=== PATIENT | female | born 1950 | race Two or more races ===

== ENCOUNTER → 2017-03-21 | Outpatient (REF) | payer MEDICARE, OTHER ==
[2017-03-21 15:20] LABS: BASO % 0.5 % (0.0-1.0); EOS # 0.3 10^3/uL (0.0-0.50); EOS % 4.1 % (0.0-3.0); HEMATOCRIT 40.5 % (36.0-47.0); HEMOGLOBIN 13.1 g/dl (12.0-16.0); IMMATURE GRANULOCYTE % 0.2 % (0-0); LYMPH % 30.7 % (24.0-44.0); MEAN CORPUSCULAR HEMOGLOBIN 29.8 pg (27.0-33.0); MEAN CORPUSCULAR HGB CONC 32.3 g/dl (32.0-36.5); MEAN CORPUSCULAR VOLUME 92.3 fl (80.0-96.0); MONO # 0.6 10^3/uL (0.0-0.8); MONO % 8.6 % (0.0-5.0); NEUTROPHILS # 3.7 10^3/uL (1.8-7.7); NEUTROPHILS % 55.9 % (36.0-66.0); PLATELET COUNT, AUTOMATED 258 10^3/uL (150-450); RED BLOOD COUNT 4.39 10^6/uL (4.00-5.40); RED CELL DISTRIBUTION WIDTH 13.2 % (11.5-14.5); WHITE BLOOD COUNT 6.7 10^3/uL (4.0-10.0)
[2017-03-21 15:51] LABS: ALBUMIN 3.9 GM/DL (3.2-5.2); ALBUMIN/GLOBULIN RATIO 1.03 (1.00-1.93); ALKALINE PHOSPHATASE 68 U/L (45-117); ALT/SGPT 18 U/L (12-78); ANION GAP 9 MEQ/L (8-16); AST/SGOT 18 U/L (7-37); BILIRUBIN,TOTAL 0.4 MG/DL (0.2-1.0); BLOOD UREA NITROGEN 18 MG/DL (7-18); CALCIUM LEVEL 8.9 MG/DL (8.8-10.2); CARBON DIOXIDE LEVEL 30 MEQ/L (21-32); CHLORIDE LEVEL 105 MEQ/L (98-107); CHOLESTEROL LEVEL 165 MG/DL (<200); CHOLESTEROL RISK RATIO 3.113 (<5); CREATININE FOR GFR 0.82 MG/DL (0.55-1.02); FREE T4 1.11 NG/DL (0.76-1.46); GLOMERULAR FILTRATION RATE > 60.0 (>45); GLUCOSE, FASTING 92 MG/DL (80-110); HDL CHOLESTEROL 53 MG/DL (>40); LDL CHOLESTEROL 97.2 MG/DL (<100); NON-HDL-C 112 MG/DL; SODIUM LEVEL 144 MEQ/L (136-145); TOTAL PROTEIN 7.7 GM/DL (6.4-8.2); TRIGLYCERIDES LEVEL 74 MG/DL (<150)
== END ==
LOC: M LABDRWAD 15:08
DX: R07.89 Other chest pain (principal); I10 Essential (primary) hypertension; E66.01 Morbid (severe) obesity due to excess calories; F32.0 Major depressive disorder, single episode, mild
CPT/HCPCS: 84443

== ENCOUNTER 2022-06-06 10:04 | Emergency (ER) | payer MEDICARE, OTHER ==
[~2022-06-06] VITALS: Ht 147.3 cm; Wt 82.2 kg
[2022-06-06 11:40] LABS: VENOUS BASE EXCESS 1.6 (-2.0-2.0); VENOUS HCO3 28.5 MEQ/L (23.0-27.0); VENOUS O2 SATURATION 56.4 % (60.0-80.0); VENOUS PARTIAL PRESSURE CO2 53.6 mmHg (38.0-50.0); VENOUS PARTIAL PRESSURE O2 31.1 mmHg (30.0-50.0); VENOUS PH 7.343 UNITS (7.330-7.430); VENOUS STANDARD HCO3 24.9 MEQ/L; VENOUS TOTAL CO2 30.1 MEQ/L (24.0-28.0)
[2022-06-06 11:44] LABS: HEMATOCRIT 40.7 % (36.0-47.0); HEMOGLOBIN 13.3 g/dl (12.0-15.5); MEAN CORPUSCULAR HEMOGLOBIN 29.7 pg (27.0-33.0); MEAN CORPUSCULAR HGB CONC 32.7 g/dl (32.0-36.5); MEAN CORPUSCULAR VOLUME 90.8 fl (80.0-96.0); PLATELET COUNT, AUTOMATED 143 10^3/uL (150-450); RED BLOOD COUNT 4.48 10^6/uL (4.00-5.40); WHITE BLOOD COUNT 4.8 10^3/uL (4.0-10.0)
[2022-06-06] MEDS ORDERED: CHLORTHALIDONE 25 MG TAB PO ONE (11:50)
[2022-06-06 12:06] LABS: OSMOLALITY SERUM 294 MOSM/KG (280-301)
[2022-06-06 12:12] LABS: ALBUMIN 4.1 G/DL (3.2-5.2); ALKALINE PHOSPHATASE 69 U/L (46-116); ALT/SGPT 13 U/L (7.0-40); AST/SGOT 25 U/L (<34); BILIRUBIN,DIRECT 0.3 MG/DL (<0.4); BLOOD UREA NITROGEN 18 MG/DL (9-23); CALCIUM LEVEL 8.6 MG/DL (8.3-10.6); CARBON DIOXIDE LEVEL 29 MMOL/L (20-31); CHLORIDE LEVEL 100 MMOL/L (98-107); CREATININE FOR GFR 0.94 MG/DL (0.55-1.30); GLOMERULAR FILTRATION RATE > 60.0 (>39); GLUCOSE, FASTING 92 MG/DL (74-106); POTASSIUM SERUM 3.6 MMOL/L (3.5-5.1); SODIUM LEVEL 137 MMOL/L (136-145); THYROID STIMULATING HORMONE 1.649 uIU/ML (0.55-4.78); TOTAL PROTEIN 7.2 G/DL (5.7-8.2)
[2022-06-06 12:19] LABS: ATYPICAL LYMPH 4 % (0-5); LYMPHOCYTES 8 % (16-44); MONOCYTES 13 % (0-5); NEUTROPHILS 75 % (28-66); PLATELET ESTIMATE NORMAL (NORMAL)
[2022-06-06] MEDS ORDERED: LABETALOL 100MG/20ML VIAL IV STA ×2 (13:38→14:26)
[2022-06-06 14:26] VITALS: BP 178/82
[2022-06-06 14:36] VITALS: BP 178/98
[2022-06-06] MEDS ORDERED: CHLO125TA PO (14:44)
[2022-06-06 15:47] LABS: FOLATE 19.5 NG/ML (>5.4); VITAMIN B12 LEVEL 390 PG/ML (211-911)
== END 2022-06-06 15:20 | disposition home or self-care (01) ==
LOC: M ED 10:04
DX: B02.9 Zoster without complications (principal); I10 Essential (primary) hypertension

== ENCOUNTER 2022-08-28 19:55 | Emergency (ER) | payer MEDICARE, OTHER ==
[~2022-08-28] VITALS: Ht 162.6 cm; Wt 85.0 kg
[~2022-08-28 19:55] MED LIST: CHLO125TA PO
[2022-08-28 20:31] VITALS: TEMP 97
[2022-08-28] MEDS ORDERED: ACETAMINOPHEN 1000MG 100ML IV BAG IV ONE (21:15)
[2022-08-28 21:36] LABS: APPEARANCE, URINE CLEAR (CLEAR); BACTERIA, URINE AUTO NEGATIVE (NEGATIVE); BILIRUBIN, URINE AUTO NEGATIVE (NEGATIVE); BLOOD, URINE BLOOD NEGATIVE (NEGATIVE); COLOR, URINE YELLOW (YELLOW); GLUCOSE, URINE (UA) AUTO NEGATIVE (NEGATIVE); KETONE, URINE AUTO NEGATIVE (NEGATIVE); LEUKOCYTE ESTERASE, URINE AUTO NEGATIVE (NEGATIVE); MUCUS, URINE SMALL (NEGATIVE); NITRITE, URINE AUTO NEGATIVE (NEGATIVE); PROTEIN, URINE AUTO NEGATIVE (NEGATIVE); RBC, URINE AUTO 2 /HPF (0-3); SPECIFIC GRAVITY URINE AUTO 1.011 (1.002-1.035); SQUAMOUS EPITHELIAL CELL UR AU 0 /HPF (0-6); UROBILINOGEN, URINE AUTO 0.2 mg/dL (0.0-2.0); WBC, URINE AUTO 0 /HPF (0-3)
[2022-08-28 22:08] LABS: BASO # 0.1 10^3/uL (0.0-0.2); BASO % 0.6 % (0.0-1.0); EOS # 0.3 10^3/uL (0.0-0.5); EOS % 2.7 % (0.0-3.0); HEMATOCRIT 37.8 % (36.0-47.0); HEMOGLOBIN 12.3 g/dl (12.0-15.5); LYMPH # 2.5 10^3/uL (1.5-5.0); LYMPH % 25.8 % (24.0-44.0); MEAN CORPUSCULAR HEMOGLOBIN 30.4 pg (27.0-33.0); MEAN CORPUSCULAR HGB CONC 32.5 g/dl (32.0-36.5); MEAN CORPUSCULAR VOLUME 93.3 fl (80.0-96.0); MONO # 0.7 10^3/uL (0.0-0.8); MONO % 7.1 % (2.0-8.0); NEUTROPHILS # 6.2 10^3/uL (1.5-8.5); NEUTROPHILS % 63.6 % (36.0-66.0); PLATELET COUNT, AUTOMATED 220 10^3/uL (150-450); RED BLOOD COUNT 4.05 10^6/uL (4.00-5.40); WHITE BLOOD COUNT 9.8 10^3/uL (4.0-10.0)
[2022-08-28 22:23] LABS: RSV AMPLIFICATION NEGATIVE (NEGATIVE)
[2022-08-28] MEDS ORDERED: hydrALAZINE 20MG/ML 1ML VIAL IV STA (22:29)
[2022-08-28 22:47] VITALS: BP 222/98
[2022-08-28 23:17] LABS: LIPASE 35 U/L (12-53)
[2022-08-28 23:20] LABS: ALBUMIN 3.7 G/DL (3.2-5.2); ALKALINE PHOSPHATASE 61 U/L (46-116); ALT/SGPT 11 U/L (7.0-40); AST/SGOT 14 U/L (<34); BILIRUBIN,DIRECT 0.1 MG/DL (<0.4); BILIRUBIN,TOTAL 0.4 MG/DL (0.3-1.2); BLOOD UREA NITROGEN 20 MG/DL (9-23); CALCIUM LEVEL 8.4 MG/DL (8.3-10.6); CARBON DIOXIDE LEVEL 28 MMOL/L (20-31); CHLORIDE LEVEL 107 MMOL/L (98-107); CK-MB VALUE MASS < 1.0 NG/ML (<3.6); CREATININE FOR GFR 0.74 MG/DL (0.55-1.30); GLOMERULAR FILTRATION RATE > 60.0 (>39); GLUCOSE, FASTING 89 MG/DL (74-106); POTASSIUM SERUM 3.9 MMOL/L (3.5-5.1); SODIUM LEVEL 143 MMOL/L (136-145); TOTAL PROTEIN 6.6 G/DL (5.7-8.2)
[2022-08-28 23:30] VITALS: BP 158/68
[2022-08-28 23:33] LABS: CPK CREATINE PHOSPHOKINASE 89 U/L (34-145); MB/CK RELATIVE INDEX 1.12 (< OR =4); THYROID STIMULATING HORMONE 1.697 uIU/ML (0.55-4.78)
[2022-08-28] MEDS ORDERED: KETOROLAC 30 MG/ML 1ML VIAL IV ONE (23:40)
[2022-08-28] MEDS ORDERED: CHLO125TA PO (23:58)
[2022-08-28] MEDS ORDERED: APAP325T4 PO (23:58)
[2022-08-29] VITALS: O2SAT 98
[2022-08-29 00:25] LABS: CK-MB VALUE MASS < 1.0 NG/ML (<3.6)
[2022-08-29 00:36] LABS: CPK CREATINE PHOSPHOKINASE 91 U/L (34-145); MB/CK RELATIVE INDEX 1.09 (< OR =4)
== END 2022-08-29 00:28 | disposition home or self-care (01) ==
LOC: M ED 19:55 → EDSEX 19:55 → EDBD 19:55 → M ED 08-29 00:28
DX: S80.02XA Contusion of left knee, initial encounter (principal); I10 Essential (primary) hypertension; W01.0XXA Fall on same level from slipping, tripping and stumbling without subsequent striking against object, initial encounter; Y92.009 Unspecified place in unspecified non-institutional (private) residence as the place of occurrence of the external cause; Y93.K1 Activity, walking an animal; Z79.899 Other long term (current) drug therapy
CPT/HCPCS: 70450; 71045; 72125; 73564; 80048; 80076; 81001; 82550; 82553; 83690; 83880; 84443; 84484; 85025; 87631; 93005; 93041; 94760; 96374; 96375; 99285; J0131; J0360; J1885

== ENCOUNTER 2024-10-28 21:13 | Observation (INO) | payer MEDICARE, OTHER, SELFPAY ==
[~2024-10-28] VITALS: Ht 147.3 cm; Wt 68.0 kg
[~2024-10-28 21:13] MED LIST changes: +APAP325T4 PO
[2024-10-28 21:47] LABS: KETONE, URINE AUTO RFX NEGATIVE (NEGATIVE); MUCUS, URINE RFX SMALL (NEGATIVE); NITRITE, URINE AUTO RFX NEGATIVE (NEGATIVE); RBC, URINE AUTO RFX 3 /HPF (0-3); SQUAM EPITHELIAL CELL UR AURFX 5 /HPF (0-6)
[2024-10-28] MEDS: hydrALAZINE 20 MG/ML 1 ML VIAL IV STA (23:04)
[2024-10-28 23:13] LABS: BASO # 0.0 10^3/uL (0.0-0.2); BASO % 0.4 % (0.0-1.0); EOS # 0.1 10^3/uL (0.0-0.5); EOS % 1.7 % (0.0-3.0); LYMPH # 1.8 10^3/uL (1.5-5.0); LYMPH % 33.5 % (24.0-44.0); MONO # 0.5 10^3/uL (0.0-0.8); MONO % 9.4 % (2.0-8.0); NEUTROPHILS # 2.9 10^3/uL (1.5-8.5); NEUTROPHILS % 54.8 % (36.0-66.0); PLATELET COUNT, AUTOMATED 190 10^3/uL (150-450)
[2024-10-28 23:30] LABS: ALT/SGPT 11.0 U/L (7.0-40); AST/SGOT 23.0 U/L (<34); CALCIUM LEVEL 9.1 MG/DL (8.3-10.6); CARBON DIOXIDE LEVEL 29.0 MMOL/L (20-31); CHLORIDE LEVEL 107.0 MMOL/L (98-107); CREATININE FOR GFR 0.74 MG/DL (0.55-1.30); GLOMERULAR FILTRATION RATE 83.8 (>39); POTASSIUM SERUM 3.6 MMOL/L (3.5-5.1); SODIUM LEVEL 145.0 MMOL/L (136-145)
[2024-10-28 23:31] LABS: LEUKOCYTE ESTERASE UR AUTO RFX 3+ (NEGATIVE); WBC, URINE AUTO RFX 14 /HPF (0-3)
[2024-10-28 23:32] LABS: FREE T4 1.2 NG/DL (0.89-1.76)
[2024-10-29] MEDS ORDERED: hydrALAZINE 20 MG/ML 1 ML VIAL IV PRN ×2 (01:05→05:00)
[2024-10-29 05:31] VITALS: BP 179/80; TEMP 97.9; O2SAT 96
[2024-10-29 05:48] LABS: PLATELET COUNT, AUTOMATED 209 10^3/uL (150-450)
[2024-10-29 06:08] LABS: ESTIMATED AVERAGE GLUCOSE 100.0 MG/DL (60-110)
[2024-10-29] MEDS: hydrALAZINE 20 MG/ML 1 ML VIAL IV SCH (06:08)
[2024-10-29 06:16] LABS: ALT/SGPT 11 U/L (7.0-40); AST/SGOT 23 U/L (<34); CALCIUM LEVEL 9.1 MG/DL (8.3-10.6); CARBON DIOXIDE LEVEL 28 MMOL/L (20-31); CHLORIDE LEVEL 106 MMOL/L (98-107); CHOLESTEROL LEVEL 160 MG/DL (<200); CHOLESTEROL RISK RATIO 3.32 (<5); CREATININE FOR GFR 0.66 MG/DL (0.55-1.30); GLOMERULAR FILTRATION RATE > 90.0 (>39); LDL CHOLESTEROL 96.9 MG/DL (<100); MAGNESIUM LEVEL 2.0 MG/DL (1.8-2.4); NON-HDL-C 111.9 MG/DL; POTASSIUM SERUM 3.5 MMOL/L (3.5-5.1); SODIUM LEVEL 147 MMOL/L (136-145); TRIGLYCERIDES LEVEL 75 MG/DL (<150)
[2024-10-29 07:52] VITALS: BP 168/80; TEMP 98; O2SAT 94
[2024-10-29 08:36] VITALS: BP 174/86
[2024-10-29] MEDS: amLODIPine 10 MG TAB PO ONE (08:39)
[2024-10-29] MEDS ORDERED: PANTOPRAZOLE 40MG VIAL IV SCH (09:00)
[2024-10-29] MEDS ORDERED: LOSARTAN 50 MG TABLET PO SCH (09:00)
[2024-10-29] MEDS ORDERED: RIVAROXABAN 10MG TAB PO SCH (09:00)
[2024-10-29 12:08] VITALS: BP 154/80
[2024-10-29] MEDS: ISOSORBIDE DINITRATE 10 MG TAB PO SCH (12:10)
[2024-10-29] MEDS ORDERED: HOME MED LIST COMPLETE! XX SCH (12:25)
[2024-10-29 16:59] VITALS: BP 142/70
[2024-10-29 19:46] VITALS: BP 145/75; TEMP 97.8; O2SAT 97
[2024-10-29] MEDS: LOSARTAN 50 MG TABLET PO SCH (21:08)
[2024-10-30] VITALS (9 sets, daily range): BP systolic 133–152; BP diastolic 63–80; TEMP 97.3–99; O2SAT 95–98
[2024-10-30 09:52] LABS: CALCIUM LEVEL 8.8 MG/DL (8.3-10.6); CARBON DIOXIDE LEVEL 25.0 MMOL/L (20-31); CHLORIDE LEVEL 105.0 MMOL/L (98-107); CREATININE FOR GFR 0.87 MG/DL (0.55-1.30); GLOMERULAR FILTRATION RATE 69.0 (>39); POTASSIUM SERUM 3.4 MMOL/L (3.5-5.1); SODIUM LEVEL 144.0 MMOL/L (136-145)
[2024-10-30] MEDS: amLODIPine 10 MG TAB PO SCH (11:07)
[2024-10-30] MEDS: OLANZapine 5 MG TAB PO ONE (23:40)
[2024-10-31 08:56] VITALS: BP 122/58; TEMP 98.9; O2SAT 96
[2024-10-31] MEDS: ISOSORBIDE MONONITRATE 60 MG XR TAB PO SCH (09:00)
[2024-10-31 12:45] VITALS: BP 127/60; TEMP 99.1; O2SAT 95
[2024-10-31 19:23] VITALS: BP_SYST 158; BP_SYST 58; BP_DIAS 78; TEMP 99.2; O2SAT 95
[2024-10-31] MEDS: LOSARTAN 50 MG TABLET PO SCH (20:31)
[2024-11-01 08:05] VITALS: BP 150/74; TEMP 99.1; O2SAT 95
[2024-11-01 20:08] VITALS: BP 151/92; TEMP 97.3; O2SAT 95
[2024-11-02 04:05] VITALS: BP 151/91; TEMP 97.2; O2SAT 96
[2024-11-03 03:50] VITALS: BP 160/89; TEMP 97.5; O2SAT 95
[2024-11-03] MEDS: ACETAMINOPHEN 325 MG TAB PO PRN (11:55)
[2024-11-04 04:17] VITALS: BP 141/67; TEMP 97.3; O2SAT 95
[2024-11-04] MEDS ORDERED: ISOSORBIDE MONONITRATE 60 MG XR TAB PO ONE (17:20)
[2024-11-04] MEDS ORDERED: ONDANSETRON 4MG ORAL DISINTEGRATING TAB PO PRN (18:00)
[2024-11-04] MEDS: ONDANSETRON 4MG ORAL DISINTEGRATING TAB SL PRN (18:10)
[2024-11-04] MEDS: amLODIPine 10 MG TAB PO SCH (20:57)
[2024-11-05 03:50] VITALS: BP 155/72; TEMP 97.2; O2SAT 96
[2024-11-05 06:40] VITALS: BP 154/71; TEMP 97.3; O2SAT 98
[2024-11-05] MEDS ORDERED: ISOSORBIDE MONONITRATE 60 MG XR TAB PO SCH (09:00)
[2024-11-05] MEDS: ISOSORBIDE MONONITRATE 60 MG XR TAB PO SCH (09:36)
[2024-11-06 04:03] VITALS: BP 152/78; TEMP 97.2; O2SAT 94
[2024-11-07 06:31] VITALS: BP 140/70; TEMP 97.2; O2SAT 99
[2024-11-08 04:35] VITALS: BP 153/71; TEMP 97.2; O2SAT 96
[2024-11-08 12:00] VITALS: BP 126/62; TEMP 98.6; O2SAT 97
[2024-11-09 04:59] VITALS: BP 150/68; TEMP 97.9; O2SAT 95
[2024-11-10 06:08] VITALS: BP 141/70; TEMP 97.3; O2SAT 96
[2024-11-10 14:30] VITALS: BP 144/67; TEMP 97.5; O2SAT 97
[2024-11-11 03:54] VITALS: BP 135/68; TEMP 97; O2SAT 98
[2024-11-11] MEDS: ENOXAPARIN 40 MG/0.4 ML SYRINGE (J1650 PER 10MG) SC SCH (08:17)
[2024-11-12 04:31] VITALS: BP 149/73; TEMP 97.7; O2SAT 97
[2024-11-13 04:20] VITALS: BP 142/72; TEMP 98.1; O2SAT 94
[2024-11-13 08:55] LABS: PLATELET COUNT, AUTOMATED 315 10^3/uL (150-450)
[2024-11-13] MEDS: OLANZapine 5 MG TAB PO SCH (21:06)
[2024-11-14 05:06] VITALS: BP 139/67; TEMP 98.8; O2SAT 96
[2024-11-15 05:57] VITALS: BP 134/69; TEMP 97.9; O2SAT 95
[2024-11-16 06:43] VITALS: BP 138/64; TEMP 98.2; O2SAT 95
[2024-11-16 06:56] LABS: PLATELET COUNT, AUTOMATED 257 10^3/uL (150-450)
[2024-11-17 03:51] VITALS: BP 140/67; TEMP 97.9; O2SAT 94
[2024-11-18 04:00] VITALS: BP 124/56; TEMP 97.9; O2SAT 96
[2024-11-19 06:15] VITALS: BP 137/60; TEMP 98.4; O2SAT 94
[2024-11-19 06:20] LABS: PLATELET COUNT, AUTOMATED 222 10^3/uL (150-450)
[2024-11-19 20:00] VITALS: BP 130/72; TEMP 97; O2SAT 96
[2024-11-21 06:43] VITALS: BP 137/69; TEMP 98.8; O2SAT 98
[2024-11-22 06:25] VITALS: BP 137/65; TEMP 98.6; O2SAT 99
[2024-11-22 08:11] LABS: PLATELET COUNT, AUTOMATED 186 10^3/uL (150-450)
[2024-11-23 03:50] VITALS: BP 131/64; TEMP 98.6; O2SAT 98
[2024-11-23 21:28] VITALS: BP 156/74
[2024-11-24 03:35] VITALS: BP 120/64; TEMP 98.8; O2SAT 98
[2024-11-24] MEDS ORDERED: ONDA-282 SL (08:12)
[2024-11-24] MEDS ORDERED: AMLO1TAB25 PO (08:12)
[2024-11-24] MEDS ORDERED: OLAN1TAB16 PO (08:12)
[2024-11-24] MEDS ORDERED: LOSA-528 PO (08:12)
[2024-11-24] MEDS ORDERED: ISOS1TAB36 PO (08:12)
[2024-11-24] MEDS ORDERED: ACET32TAB PO (08:12)
[2024-11-24] MEDS ORDERED: ROZE8TAB16 PO (08:19)
[2024-11-24 08:52] VITALS: BP 157/73
== END 2024-11-24 12:03 ==
LOC: M ED 21:13 → M ED INP 10-29 01:05 → INTOOBSV 10-29 01:05 → M PCU 10-29 05:25 → M MSPAV 11-01 18:58
PROVIDERS: ADMIT Student in an Organized Health Care Education/Training Program; ATTEND Internal Medicine
DX: I16.0 Hypertensive urgency (principal); I10 Essential (primary) hypertension; R41.82 Altered mental status, unspecified; R54 Age-related physical debility; Z79.899 Other long term (current) drug therapy
CPT/HCPCS: 36415; 70450; 80048; 80053; 80061; 80076; 81001; 83036; 83735; 84439; 84443; 85025; 85027; 87086; 87426; 93005; 93041; 94760; 96372; 96374; 96376; 97161; 97165; 99285; G0378; J0360; J1650

== ENCOUNTER → 2024-12-30 | Outpatient (REF) | payer MEDICARE, MEDICAID ==
[~2024-12-30] MED LIST changes: +ACET32TAB PO; +AMLO1TAB25 PO; +ISOS1TAB36 PO; +LOSA-528 PO; +OLAN1TAB16 PO; +ONDA-282 SL; +ROZE8TAB16 PO
[2024-12-30 04:00] LABS: APPEARANCE, URINE CLEAR (CLEAR); BACTERIA, URINE AUTO NEGATIVE (NEGATIVE); BILIRUBIN, URINE AUTO NEGATIVE (NEGATIVE); BLOOD, URINE BLOOD NEGATIVE (NEGATIVE); GLUCOSE, URINE (UA) AUTO NEGATIVE (NEGATIVE); KETONE, URINE AUTO NEGATIVE (NEGATIVE); LEUKOCYTE ESTERASE, URINE AUTO NEGATIVE (NEGATIVE); NITRITE, URINE AUTO NEGATIVE (NEGATIVE); PROTEIN, URINE AUTO NEGATIVE (NEGATIVE); RBC, URINE AUTO 1 /HPF (0-3); SPECIFIC GRAVITY URINE AUTO 1.013 (1.002-1.035); SQUAMOUS EPITHELIAL CELL UR AU 0 /HPF (0-6); UROBILINOGEN, URINE AUTO 2.0 mg/dL (0.0-2.0); WBC, URINE AUTO 1 /HPF (0-3)
[2024-12-30 07:43] LABS: BASO # 0.0 10^3/uL (0.0-0.2); BASO % 0.4 % (0.0-1.0); EOS # 0.2 10^3/uL (0.0-0.5); EOS % 3.3 % (0.0-3.0); LYMPH # 1.9 10^3/uL (1.5-5.0); LYMPH % 27.3 % (24.0-44.0); MONO # 0.6 10^3/uL (0.0-0.8); MONO % 8.4 % (2.0-8.0); NEUTROPHILS # 4.3 10^3/uL (1.5-8.5); NEUTROPHILS % 60.5 % (36.0-66.0)
[2024-12-30 08:06] LABS: CALCIUM LEVEL 8.7 MG/DL (8.3-10.6); CARBON DIOXIDE LEVEL 28.0 MMOL/L (20-31); CHLORIDE LEVEL 106.0 MMOL/L (98-107); CREATININE FOR GFR 0.73 MG/DL (0.55-1.30); GLOMERULAR FILTRATION RATE 85.2 (>39); POTASSIUM SERUM 4.4 MMOL/L (3.5-5.1); SODIUM LEVEL 144.0 MMOL/L (136-145)
[2024-12-30 08:07] LABS: PLATELET COUNT, AUTOMATED 195 10^3/uL (150-450)
== END ==
LOC: SKLAB3 03:30 → EDSTATUS 01-07 14:01
PROVIDERS: ATTEND Family Medicine
DX: R41.0 Disorientation, unspecified (principal)